=== PATIENT | female | born 1955 | race Caucasian/White ===

== ENCOUNTER 2023-01-31 14:23 | Emergency (ER) | payer BC ==
[2023-01-31] MEDS ORDERED: Lidocaine/Prilocaine 2.5-2.5% Crm 5 GM Tube TOP ONE (14:45)
[2023-01-31] MEDS ORDERED: Lidocaine 1% with EPINEPHrine 1:100,000 20 ML MDV INJECT ONE (14:45)
[2023-01-31] MEDS ORDERED: Diphtheria,Pertussis(Acell),Tetanus Vaccine 0.5 ML Syringe IM ONE (14:58)
[2023-01-31] MEDS: Bacitracin/Neomycin/Polymyxin B Oint 0.9 GM U/D Packet TOP ONE ×2 (15:30→16:03)
== END 2023-01-31 17:30 | disposition home or self-care (01) ==
LOC: CC.ED 14:23
DX: S51.851A Open bite of right forearm, initial encounter (principal); S81.852A Open bite, left lower leg, initial encounter; Z23 Encounter for immunization; W54.0XXA Bitten by dog, initial encounter
CPT/HCPCS: 12005; 90471; 90715; 99283; A9270; J3490